=== PATIENT | male | born 1975 | race Caucasian/White ===

== ENCOUNTER 2019-01-18 11:40 | Emergency (ER) | payer BC, OTHER ==
[2019-01-18 11:53] VITALS: BP 126/90; PULSE 84; RESP 18; TEMP 98.8
[2019-01-18] MEDS ORDERED: ACET/COD 300 MG/30 MG STARTER PACK 6 TAB BTL PO STA (13:20)
--- NOTE | 2019-01-18 13:21 | ED ---
ENT HPI - General Chief complaint: Dental/Oral Stated complaint: Mouth abcess, trouble swallowing Time Seen by Provider: 01/18/19 12:42 Source: patient, RN notes reviewed, old records reviewed Mode of arrival: ambulatory Limitations: no limitations - History of Present Illness Initial comments: Patient is a 44 year old male with 1 week of left sided facial swelling and dental pain. Patient reports he is scheduled to have left lower molar tooth pulled in 1 week. Patient reports he has been on clindamycin. Patient states he is having increased pain, not managed by motrin. - Related Data Home Medications Medication Instructions Recorded Confirmed ALPRAZolam [Xanax] 1 mg PO HS 02/04/06/23/18 Acetaminophen Tab [Tylenol Tab] 325 mg PO Q6H PRN 06/23/18 06/23/18 Previous Rx's Medication Instructions Recorded Acetaminophen-Codeine 300-30mg 1 tab PO Q6H PRN 3 Days #12 tablet 01/18/19 [Tylenol w/codeine #3] Allergies Allergy/AdvReac Type Severity Reaction Status Date / Time Penicillins Allergy Rash/Hives Verified 01/18/19 11:52 Review of Systems ROS Statement: Those systems with pertinent positive or pertinent negative responses have been documented in the HPI. ROS Other: All systems not noted in ROS Statement are negative. Past Medical History Past Medical History: No Reported History History of Any Multi-Drug Resistant Organisms: None Reported Past Surgical History: No Surgical Hx Reported Past Psychological History: No Psychological Hx Reported Smoking Status: Never smoker Past Alcohol Use History: None Reported Past Drug Use History: None Reported General Exam - General Exam Comments Initial Comments: 44 year old male, no distress. Limitations: no limitations General appearance: alert, in no apparent distress Head exam: Present: atraumatic, normocephalic, normal inspection Eye exam: Present: normal appearance, PERRL, EOMI. Absent: scleral icterus, conjunctival injection, periorbital swelling ENT exam: Present: normal exam, mucous membranes moist, other (tenderness and swelling over left parotid gland.) Neck exam: Present: normal inspection. Absent: tenderness, meningismus, lymphadenopathy Respiratory exam: Present: normal lung sounds bilaterally. Absent: respiratory distress, wheezes, rales, rhonchi, stridor Cardiovascular Exam: Present: regular rate, normal rhythm, normal heart sounds. Absent: systolic murmur, diastolic murmur, rubs, gallop, clicks GI/Abdominal exam: Present: soft, normal bowel sounds. Absent: distended, tenderness, guarding, rebound, rigid Extremities exam: Present: normal inspection, full ROM, normal capillary refill. Absent: tenderness, pedal edema, joint swelling, calf tenderness Back exam: Present: normal inspection Psychiatric exam: Present: normal affect, normal mood Course Vital Signs 01/18/19 11:49 Temperature 98.8 F Pulse Rate 84 Respiratory 18 Rate Blood Pressure 126/90 O2 Sat by Pulse 99 Oximetry Medical Decision Making - Medical Decision Making 44 year old male with dental pain and facial swelling for 1 week, he is on clindamycin for 4 days. Patient reports painwith swallowing. Patienthas no evidence of peritonsilar abscess. He has tenderness over left parotid gland. Also examined patient with Dr. Best. At this time patient will continue clindamycin and will write patient for stronger pain medication. Discussed strict return parameters. Advised to follow up with dentisit tomorrow. Disposition Clinical Impression: Dental abscess Disposition: HOME SELF-CARE Condition: Good Instructions (If sedation given, give patient instructions): Dental Abscess (ED) Additional Instructions: Take the antibiotics as already prescribed. Use pain medicine as needed. Return to emergency department if any alarming signs or symptoms occur. Prescriptions: Acetaminophen-Codeine 300-30mg [Tylenol w/codeine #3] 1 tab PO Q6H PRN 3 Days #12 tablet PRN Reason: Pain Is patient prescribed a controlled substance at d/c from ED?: Yes If prescribed controlled substance>3 days was MAPS reviewed?: Prescribed <3 Days If opioid is for acute pain is fill amount 7 days or less?: Yes If Rx opioid, was Start Talking consent form obtained?: Yes Referrals: Danilo Martinez MD [Primary Care Provider] - 1-2 days Time of Disposition: 13:20
== END 2019-01-18 13:27 | disposition home or self-care (01) ==
LOC: EC 11:40
DX: K04.7 Periapical abscess without sinus (principal); Z79.899 Other long term (current) drug therapy; Z88.0 Allergy status to penicillin
CPT/HCPCS: 99283

== ENCOUNTER 2019-07-11 16:22 | Emergency (ER) | payer BC ==
[2019-07-11 16:57] VITALS: BP 157/91; PULSE 89; RESP 20; TEMP 98
--- NOTE | 2019-07-11 17:01 | ED ---
Male Urogenital HPI - General Source: patient, RN notes reviewed Mode of arrival: ambulatory Limitations: no limitations <Faisal Edmond - Last Filed: 07/11/19 17:01> <Celestino Segura - Last Filed: 07/11/19 17:52> - General Chief complaint: Urogenital Stated complaint: male gu - History of Present Illness Initial comments: 44-year-old male presents emergency Department chief complaint of penile discharge, painful urination. Patient states that has not improved her last one week noticed an increasing symptoms. No fevers or chills. (Faisal Edmond) This is a 44-year-old male who presents emergency Department with a chief complaint of penile discharge and painful urination. Patient states that he met someone new recently and was sexually active with them and believes he caught something from her. Patient denies any rashes or lesions. Patient denies any sites of bleeding. Patient denies any hematuria. Patient denies any back pain. Patient denies any fever chills. Patient denies any abdominal pain. (Celestino Segura) - Related Data Home Medications Medication Instructions Recorded Confirmed ALPRAZolam [Xanax] 1 mg PO HS 02/04/14 06/23/18 Acetaminophen Tab [Tylenol Tab] 325 mg PO Q6H PRN 06/23/18 06/23/18 Previous Rx's Medication Instructions Recorded Acetaminophen-Codeine 300-30mg 1 tab PO Q6H PRN 3 Days #12 tablet 01/18/19 [Tylenol w/codeine #3] Allergies Allergy/AdvReac Type Severity Reaction Status Date / Time Penicillins Allergy Rash/Hives Verified 07/11/19 16:57 Review of Systems ROS Other: All systems not noted in ROS Statement are negative. <Faisal Edmond - Last Filed: 07/11/19 17:01> ROS Other: All systems not noted in ROS Statement are negative. <Celestino Segura - Last Filed: 07/11/19 17:52> ROS Statement: Those systems with pertinent positive or pertinent negative responses have been documented in the HPI. Past Medical History Past Medical History: No Reported History History of Any Multi-Drug Resistant Organisms: None Reported Past Surgical History: No Surgical Hx Reported Past Psychological History: No Psychological Hx Reported Smoking Status: Never smoker Past Alcohol Use History: None Reported Past Drug Use History: None Reported <FeliFaisal Neena - Last Filed: 07/11/19 17:01> General Exam Limitations: no limitations <Faisal Edmond - Last Filed: 07/11/19 17:01> <Celestino Segura - Last Filed: 07/11/19 17:52> - General Exam Comments Initial Comments: GENERAL Patient is well-developed and well-nourished. Patient is in no acute distress. EYES Patient's pupils are equal and round. Extraocular motion is intact SKIN Unremarkable NEURO The patient is alert and oriented 3 PYSCH Patient has normal interpersonal interactions. GENITALIA Normal genitalia no rashes or lesions noted no discharge noted at this time. (Celestino Segura) Course Vital Signs 07/11/19 16:55 Temperature 98.0 F Pulse Rate 89 Respiratory 20 Rate Blood Pressure 157/91 O2 Sat by Pulse 99 Oximetry Medical Decision Making - Lab Data Lab Results 07/11/19 Range/Units 17:15 Urine Color Yellow Urine Appearance Clear (Clear) Urine pH 5.5 (5.0-8.0) Ur Specific [place] 1.019 (1.001-1.035) Urine Protein Negative (Negative) Urine Glucose (UA) Negative (Negative) Urine Ketones Negative (Negative) Urine Blood Negative (Negative) Urine Nitrite Negative (Negative) Urine Bilirubin Negative (Negative) Urine Urobilinogen <2.0 (<2.0) mg/dL Ur Leukocyte Esterase Negative (Negative) Disposition <ScarvarinderFaisal Neena - Last Filed: 07/11/19 17:01> Is patient prescribed a controlled substance at d/c from ED?: No Time of Disposition: 17:52 <Celestino Segura - Last Filed: 07/11/19 17:52> Clinical Impression: STD (male) Disposition: HOME SELF-CARE Condition: Good Instructions (If sedation given, give patient instructions): Sexually Transmitted Diseases (ED) Referrals: Danilo Martinez MD [Primary Care Provider] - 1-2 days
[2019-07-11 17:38] LABS: Appearance,Urine Clear (Clear); Bilirubin,Urine Negative (Negative); Blood,Urine Negative (Negative); Color,Urine Yellow; Glucose,Urine (UA) Negative (Negative); Ketones,Urine Negative (Negative); Leukocyte Esterase,Urine Negative (Negative); Nitrite,Urine Negative (Negative); PH, Urine 5.5 (5.0-8.0); Protein,Urine Negative (Negative); Specific Gravity,Urine 1.019 (1.001-1.035); Urobilinogen,Urine <2.0 mg/dL (<2.0)
[2019-07-11] MEDS ORDERED: AZITHROMYCIN 500 MG TAB PO STA (17:49)
[2019-07-11] MEDS ORDERED: cefTRIAXone 1,000 MG VIAL (IM USE) IM STA (17:49)
[2019-07-12 16:13] LABS: N. gonorrhoeae,PCR Negative (Neg,Equiv); Neisseria Source Urine
[2019-07-12 16:14] LABS: C. trachomatis,PCR Negative (Neg,Equiv); Chlamydia trachomatis Source Urine
== END 2019-07-11 18:26 | disposition home or self-care (01) ==
LOC: EC 16:22
DX: A64 Unspecified sexually transmitted disease (principal); Z88.0 Allergy status to penicillin
CPT/HCPCS: 81003; 87491; 87591; 96372; 99283; J0696